=== PATIENT | female | born 1980 | race Caucasian/White ===

== ENCOUNTER → 2021-04-21 | Outpatient (CLI) | payer OTHER ==
[~2021-04-21] MED LIST: IBU600 MG PO; MOTRIN 800800 MG/TAB PO; PERCOCET 325 MG1 TA2 PO; PRENATAL; SYNTHROID0.05 MG/TA PO
== END ==
LOC: ZCOL.LAB 09:21
DX: Z20.822 Contact with and (suspected) exposure to COVID-19 (principal)

== ENCOUNTER 2021-04-22 06:19 | Inpatient (IN) | payer OTHER ==
[~2021-04-22] VITALS: Ht 161.3 cm; Wt 102.3 kg
[2021-04-22] VITALS (62 sets, daily range): BP systolic 106–187; BP diastolic 54–889; PULSE 49–101; TEMP 97.6–98
--- NOTE | 2021-04-22 06:25 | NUR ---
0625: PT ARRIVES AMBULATORY TO UNIT WITH . ASSISTED INTO GOWN AND ORIENTED TO LABOR ROOM. ASSESSMENTS COMPLETED AND CHARTED. CONSENTS SIGNED. DENIES CONTRACTIONS, LEAKING OF FLUID/BLOOD, AND REPORTS POSITIVE MOVEMENT. POC REVIEWED AND UNDERSTOOD FOR IOL. NO FURTHER QUESTIONS OR CONCERNED. WILL CONTINIUE WITH IOL PER PROTOCOL. 0715: AT BEDSIDE. SVE CLOSED/THICK/HIGH. ULTRASOUND PROVIDED, VERTEX PRESENTATION CONFIRMED. EDUCATES PT ON DELIVERY OPTIONS AND POC. DISCUSSING BENEFIT OF USING COOK BALLOON FOR CERVICAL RIPENING. PT AGREEABLE TO THIS MECHANISM.
[2021-04-22] MEDS ORDERED: SYNTHROID0.05 MG/TA PO (06:56)
[2021-04-22] MEDS ORDERED: PRENATAL (06:56)
[2021-04-22 07:13] LABS: BASO % 0.4 % (0.0-2.0); EOS # 0.1 (0.0-0.7); EOS % 0.8 % (0-4.0); GRAN # 6.1 (1.4-6.5); GRAN % 63.8 % (42.2-75.2); HEMOGLOBIN 11.3 g/dl (12.5-16.0); LYMPH # 2.6 (1.2-3.4); LYMPH % 26.7 % (20.0-51.0); MEAN CELL VOLUME 85 fl (80.0-100.0); MEAN CORPUSCULAR HEMOGLOBIN 27 pg (27.0-31.0); MEAN CORPUSCULAR HGB CONC 32 g/dl (33.0-37.0); MEAN PLATELET VOLUME 11.5 fl (7.4-10.4); MONO # 0.8 (0.1-0.6); MONO % 7.8 % (1.7-9.3); PLATELET COUNT 203 K/mm3 (130-400); RED BLOOD COUNT 4.16 M/mm3 (4.10-5.30); REDCELL DISTRIBUTION WIDTH-CV 13.7 % (11.5-14.5)
[2021-04-22 07:17] LABS: HEMATOCRIT 35.4 % (37.0-47.0)
--- NOTE | 2021-04-22 08:15 | NUR ---
AT BEDSIDE, EDUCATION PROVIDED ON COOK CERVIAL RIPENING BALLOON PLACEMENT, PT AGREEABLE TO PLAN OF CARE AND PLACEMENT OF BALLOON, COOK BALLOON PLACED AT THIS TIME, PT TOLERATED PROCEDURE WELL
--- NOTE | 2021-04-22 10:40 | NUR ---
PT SITTING UPRIGHT ON EDGE OF BED, VISHAL VALENZUELA EDUCATES PT ON EPIDURAL PLACEMENT AND PROCEDURE, PT AGREEABLE TO PLACEMENT, CATEGORY 1 TRACING, VITAL SIGNS STABLE, DIFFICULTY TRACING FHR THROUGHOUT OCCURENCE, ABLE TO PALPATE CONTRACTIONS Q3MIN. SINGLE SHOT @ 1040 PER VISHAL VALENZUELA. PT REPORTS IMMEDIATE RELIEF FOLLOWING PLACEMENT AND SINGLE SHOT. ASSISTED COMFORTABLY BACK INTO BED. WILL CONTINUE TO MONITOR PER PROTOCOL.
--- NOTE | 2021-04-22 15:29 | NUR ---
FREQUENT POSITION CHANGES USING PEANUT BALL AND SIDE LYING POSITIONS MAKING IT DIFFICULT TO TRACE TOCO INTERMITTENTLY THROUGHOUT AFTERNOON, THIS NURSE AT BEDSIDE THROUGHOUT EPISODES PALPATING CONTRACTIONS. CONTRACTIONS REMAIN FIRM AND Q2-3 MINUTES APART, FHR TRACING REMAINS LEVEL 1 AND CONSISTENT THROUGHOUT AFTERNOON, NO DIFFICULTY TRACING EFM
--- NOTE | 2021-04-22 16:30 | NUR ---
AT BEDSIDE, ABLE TO REMOVE COOK BALLOON FROM VAGINA. 1632: SVE FOLLOWING REMOVAL OF COOK BALLOON: /-3, AROM W/ CLEAR FLUID, NO NEW ORDERS AT THIS TIME, CONTINUE WITH POC PER INDUCTION PROTOCOL
--- NOTE | 2021-04-22 16:50 | NUR ---
1650: NOTED RECURRENT VARIABLES DOWN TO 70'S, REPOSITIONED TO RIGHT LATERAL, DIFFICULTY MAINTAINING CONTINUAL TRACING OF FHR AND TOCO, AUDIBLE HEART RATE DECELS 170: FSE PLACED, SVE /-3 171: NOTIFIED, SEE PHYS. NOTIFICATION
--- NOTE | 2021-04-22 17:20 | NUR ---
1720: TO UNIT, FHR BACK TO BASELINE, IUPC PLACED BY 1746: REMAINS ON UNIT, GIVES NURSE ORDER TO CONTIUE TO MONITOR AND LEAVE PITOCIN OFF UNTIL FURTHER NOTICE
--- NOTE | 2021-04-22 18:15 | NUR ---
1814-Dr. De La Cruz back on unit to evaluate FHR monitor. Gives this RN to resume pitocin at 2mu/min. 1817-Pit started back at 2mu/min per order.
[2021-04-23] VITALS (7 sets, daily range): BP systolic 112–146; BP diastolic 57–86; PULSE 62–90; TEMP 97.7–98.2
--- NOTE | 2021-04-23 00:39 | NUR ---
DR. FINK NOTIFIED OF PATIENTS LATE DECELS AND PITOCIN TURNED OFF. DR IS COMING IN TO EVALUATE THE PATIENT
--- NOTE | 2021-04-23 00:41 | NUR ---
PATIENT TURNED TO RIGHT LATERAL, PITOCIN OFF AND OXYGEN APPLIED. DR. FINK AT BEDSIDE TO EVALUATE THE PATIENT. CALLED AT [address] TAM
--- NOTE | 2021-04-23 01:45 | NUR ---
0145 PERCOCET X2 PO GIVEN. IV TO INT WITH ALL PREV FLUID INFUSED. RAVI DRAINING CL FLUID. SCD'S ON. PERICARE DONE. PADS CHANGED. ABD BINDER ON. MOVES WELL IN BED. FF WITH LARGE RUBRA NOTED ON UNDERPAD AND CHANGED. LIGHTS OUT TO REST.
[2021-04-23] MEDS ORDERED: IBU600 MG PO ×2 (06:25)
[2021-04-23] MEDS ORDERED: PERCOCET 325 MG1 TA2 PO ×2 (06:25)
[2021-04-23 07:40] LABS: HEMOGLOBIN 10.6 g/dl (12.5-16.0)
[2021-04-23 07:48] LABS: HEMATOCRIT 32.7 % (37.0-47.0)
--- NOTE | 2021-04-23 10:18 | NUR ---
Initial visit; Parents thanked Capacity Management Specialist for offering congratulations and God's blessings for their daughter. Capacity Management Specialist thanked family for choosing our hospital.
--- NOTE | 2021-04-23 18:30 | NUR ---
Report recieved. Resting in bed while holding . POC reviewed. Whiteboard updated.
[2021-04-24 08:23] VITALS: BP 137/89; PULSE 76; TEMP 98
[2021-04-24] MEDS ORDERED: MOTRIN 800800 MG/TAB PO (08:25)
[2021-04-24] MEDS ORDERED: PERCOCET 325 MG1 TA2 PO (08:25)
== END 2021-04-24 11:25 | disposition home or self-care (01) | DRG 788 ==
LOC: LDR 06:19 → OB 06:19
PROVIDERS: ADMIT Obstetrics & Gynecology
PROC: 10D00Z1 Extraction of Products of Conception, Low, Open Approach (ICD-10-PCS; principal; 2021-04-22)
DX: O13.4 Gestational [pregnancy-induced] hypertension without significant proteinuria, complicating childbirth (principal); O99.284 Endocrine, nutritional and metabolic diseases complicating childbirth; O34.13 Maternal care for benign tumor of corpus uteri, third trimester; D25.9 Leiomyoma of uterus, unspecified; Z3A.38 38 weeks gestation of pregnancy; Z37.0 Single live birth; E03.9 Hypothyroidism, unspecified; O62.1 Secondary uterine inertia
CPT/HCPCS: J0690; J1885; J2175; J2370; J2400; J2405; J2590; J2795; J7120

== ENCOUNTER 2023-01-16 05:16 | Inpatient (IN) | payer OTHER ==
[~2023-01-16] VITALS: Ht 161.3 cm; Wt 104.1 kg
[2023-01-16] VITALS (26 sets, daily range): BP systolic 89–143; BP diastolic 37–99; PULSE 74–109; TEMP 97.8–98.7
--- NOTE | 2023-01-16 06:00 | NUR ---
0535: Pt ambulated onto unit and oriented to LDR4. Pt changed into exam gown. 0538: This nurse at pt bedside for introductions. Pt on external monitors x2. Pt endorses LOF, denies ctx and vaginal bleeding. Pt states SROM "around 0430 this morning and it was clear. I thought I peed myself but I just kept leaking even after wearing a pad." POC discussed with pt and labor assessment obtained. Questions, concerns, and needs encouraged. Pt verbalized understanding and agreement of POC with "no" questions, concerns, or needs. 0544: Amnioswab obtained, positive JERRI. 0550: SVE, with pt consent and explanation, fingertip/50/high. 0610: Dr. Estrada notified, via phonecall, of pt progress. Per Dr. Estrada, "Admit her and all that. If she is not going into labor, we can wait on her csection a little later on today. Call Dr. De La Cruz at 0700 and go from there." See physician notification for further details.
[2023-01-16] MEDS ORDERED: OSCAL 500 TAB500 MG PO (06:31)
[2023-01-16] MEDS ORDERED: VITAMIN D31000 IU PO (06:32)
[2023-01-16] MEDS ORDERED: PROFERRIN ES12 MG PO (06:33)
[2023-01-16] MEDS ORDERED: COLACE 100100 MG/CAP PO (06:34)
[2023-01-16] MEDS ORDERED: TUMS500 MG (06:35)
[2023-01-16 06:53] LABS: BASO % 0.3 % (0.0-2.0); EOS # 0.1 K/mm3 (0.0-0.7); EOS % 0.7 % (0.0-4.0); GRAN # 5.9 K/mm3 (1.4-6.5); GRAN % 65.3 % (42.2-75.2); HEMOGLOBIN 11.9 g/dl (12.5-16.0); LYMPH # 2.2 K/mm3 (1.2-3.4); LYMPH % 24.8 % (20.0-51.0); MEAN CELL VOLUME 83 fl (80.0-100.0); MEAN CORPUSCULAR HEMOGLOBIN 28 pg (27-31); MEAN CORPUSCULAR HGB CONC 33 g/dl (33.0-37.0); MEAN PLATELET VOLUME 11.3 fl (7.4-10.4); MONO # 0.8 K/mm3 (0.1-0.6); MONO % 8.5 % (1.7-9.3); PLATELET COUNT 191 K/mm3 (130-400); RED BLOOD COUNT 4.29 M/mm3 (4.10-5.30); REDCELL DISTRIBUTION WIDTH-CV 12.7 % (11.5-14.5)
[2023-01-16 07:06] LABS: HEMATOCRIT 35.6 % (37.0-47.0)
--- NOTE | 2023-01-16 08:20 | NUR ---
DR WOMACK ON UNIT REVIEWING PLAN OF CARE AND REVIEWING FHR
--- NOTE | 2023-01-16 08:54 | NUR ---
dr mast off unit
--- NOTE | 2023-01-16 11:18 | NUR ---
[id number] THIS RN IN ROOM [id number] THIS RN ADJUSTING FHR MONITOR.
--- NOTE | 2023-01-16 12:45 | NUR ---
1158 C SECTION BEGAN WITH DR WOMACK AND VANI CLARKE TECH 1203 VACUUM ASSISTED DELIVERY OF BY DR WOMACK AND VANI CLARKE TECH DR LUNA 1ST ASSIST ARRIVES AFTER DELIVERY OF INFANT.
[2023-01-17 04:00] VITALS: BP 120/70; PULSE 83; TEMP 98
[2023-01-17 08:30] VITALS: BP 125/50; PULSE 71
[2023-01-17] MEDS ORDERED: ROXICODONE 55 MG/TAB PO (09:14)
[2023-01-17] MEDS ORDERED: IBU800 M1 PO (09:15)
[2023-01-17] MEDS ORDERED: TYLENOL 500MG500 MG PO (09:15)
--- NOTE | 2023-01-17 09:49 | NUR ---
Initial visit; Patient thanked Sewing Machine Tester for offering congratulations and God's blessings for the of her son. Sewing Machine Tester thanked patient for choosing our hospital.
[2023-01-17 16:30] VITALS: BP 126/58; PULSE 71
[2023-01-17 20:15] VITALS: BP 106/63; PULSE 73; TEMP 97.7
[2023-01-18 08:45] VITALS: BP 12/79; PULSE 71
== END 2023-01-18 13:30 | disposition home or self-care (01) | DRG 788 ==
LOC: LDRO 05:16 → LDR 05:35 → LDRO 06:28 → OB 06:29
PROVIDERS: Obstetrics & Gynecology; ADMIT Obstetrics & Gynecology
PROC: 10D00Z1 Extraction of Products of Conception, Low, Open Approach (ICD-10-PCS; principal; 2023-01-16)
DX: O34.211 Maternal care for low transverse scar from previous cesarean delivery (principal); O34.13 Maternal care for benign tumor of corpus uteri, third trimester; O99.213 Obesity complicating pregnancy, third trimester; O99.283 Endocrine, nutritional and metabolic diseases complicating pregnancy, third trimester; E03.9 Hypothyroidism, unspecified; O43.123 Velamentous insertion of umbilical cord, third trimester; O69.81X0 Labor and delivery complicated by cord around neck, without compression, not applicable or unspecified; Z3A.37 37 weeks gestation of pregnancy; Z37.0 Single live birth; Z79.890 Hormone replacement therapy
CPT/HCPCS: J0456; J0690; J1100; J1885; J2405; J2590; J2765; J7050; J7120